=== PATIENT | female | born 1990 | race American Indian/Alaskan Native ===

== ENCOUNTER 2019-01-06 19:53 | Emergency (ER) | payer MEDICARE ==
--- NOTE | 2019-01-06 20:03 | Emergency Department Report ---
Blank Doc - Documentation Documentation: This is a 28-year-old female that presents with right facial rash. This initial assessment/diagnostic orders/clinical plan/treatment(s) is/are subject to change based on patient's health status, clinical progression and re- assessment by fellow clinical providers in the ED. Further treatment and workup at subsequent clinical providers discretion. Patient/guardians urged not to elope from the ED as their condition may be serious if not clinically assessed and managed. Initial orders include: 1- Patient sent to [facility] for further evaluation and treatment
[2019-01-06 20:09] VITALS: BP 145/88
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
== END 2019-01-06 23:02 | disposition home or self-care (01) ==
LOC: ED 19:53
DX: S00.81XA Abrasion of other part of head, initial encounter (principal); E11.9 Type 2 diabetes mellitus without complications; J45.909 Unspecified asthma, uncomplicated; F20.9 Schizophrenia, unspecified; E03.9 Hypothyroidism, unspecified; Z79.899 Other long term (current) drug therapy; Z91.013 Allergy to seafood; Y04.2XXA Assault by strike against or bumped into by another person, initial encounter; Y93.89 Activity, other specified; Y92.89 Other specified places as the place of occurrence of the external cause; Y99.8 Other external cause status
CPT/HCPCS: 99282

== ENCOUNTER 2019-04-07 20:01 | Emergency (ER) | payer MEDICARE ==
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
[2019-04-07 21:22] LABS: Basophils % (Auto) 0.4 % (0.0-1.8); Eosinophils # (Auto) 0.4 K/mm3 (0.0-0.4); Eosinophils % (Auto) 3.1 % (0.0-4.3); Hematocrit 33.8 % (30.3-42.9); Hemoglobin 10.8 gm/dl (10.1-14.3); Lymphocytes # (Auto) 2.1 K/mm3 (1.2-5.4); Lymphocytes % (Auto) 17.5 % (13.4-35.0); Mean Corpuscular HGB Conc 32 % (30-34); Mean Corpuscular Volume 72 fl (79-97); Monocytes # (Auto) 0.9 K/mm3 (0.0-0.8); Monocytes % (Auto) 7.2 % (0.0-7.3); Platelet Count 448 K/mm3 (140-440); Red Blood Count 4.71 M/mm3 (3.65-5.03)
[2019-04-07 21:31] LABS: Bacteria,Urine 1+ /HPF (Negative); Bilirubin,Urine NEG (Negative); Blood,Urine MOD (Negative); Color,Urine Yellow (Yellow); Mucus,Urine FEW /HPF; Urobilinogen,Urine < 2.0 mg/dL (<2.0)
[2019-04-07 21:38] LABS: Alanine Aminotransferase 13 units/L (7-56); Albumin 4.4 g/dL (3.9-5); BUN/Creatinine Ratio 20; Blood Urea Nitrogen 12 mg/dL (7-17); Calcium 9.5 mg/dL (8.4-10.2); Hemolysis Index 29
[2019-04-07 21:41] LABS: Amphetamine Screen,Urine PRESUMPTIVE NEGATIVE; Benzodiazepines Screen,Urine PRESUMPTIVE NEGATIVE; Cannabinoid Screen,Urine PRESUMPTIVE NEGATIVE; Cocaine Screen,Urine PRESUMPTIVE NEGATIVE; Methadone Screen,Urine PRESUMPTIVE NEGATIVE; Opiate Screen,Urine PRESUMPTIVE NEGATIVE
[2019-04-07] MEDS ORDERED: BENADRYL PO PRN (22:09)
[2019-04-07] MEDS ORDERED: LEVAQUIN ONE (22:16)
[2019-04-07] MEDS ORDERED: BENADRYL PO ONE ×2 (22:17)
[2019-04-07] MEDS: LEVAQUIN PO SCH (22:39)
[2019-04-08] MEDS ORDERED: TOPAMAX PO SCH (10:00)
[2019-04-08] MEDS ORDERED: TOPIRAMATE 100 MG PO SCH (10:00)
[2019-04-08] MEDS ORDERED: MELATONIN PO PRN (13:05)
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
[2019-04-08] MEDS: LEXAPRO PO SCH (15:34)
[2019-04-08] MEDS: SYNTHROID PO SCH (19:35)
[2019-04-08] MEDS ORDERED: NON-FORMULARY (Trazodone Hcl [Oleptro Er] 150 MG) PO SCH (22:00)
[2019-04-08] MEDS ORDERED: DESYREL PO SCH (22:00)
[2019-04-08] MEDS: TRILEPTAL PO SCH (22:58)
[2019-04-08] MEDS: LEVAQUIN PO SCH (22:58)
[2019-04-09] MEDS: SYNTHROID PO SCH (08:26)
[2019-04-09] MEDS: LEXAPRO PO SCH (11:00)
[2019-04-09] MEDS: TRILEPTAL PO SCH (11:00)
--- NOTE | 2019-04-09 12:08 | Progress Note ---
Subjective - Reason for Consult Consult date: 04/09/19 Reason for consult: Psychiatry Follow-up - Chief Complaint Chief complaint: 'I'm doing better" 29 y.o. AA female who presented to the ER for SI's. Today the patient was calm and cooperative during the assessment. She stated that she would like to go back to her longterm. Per the staff, no behavioral disturbances overnight. She denies Si/HI's and AVH's. She denies any side effects of her medications. several attempts was made to contact the patient's tailing machine operator Ms Mallika Mckinley at [phone]. Mental Status Exam - Vital signs Last Vital Signs Temp 98.1 F 04/09/19 07:00 Pulse 97 H 04/09/19 07:00 Resp 18 04/09/19 07:00 BP 109/66 04/09/19 07:00 Pulse Ox 98 04/09/19 07:00 - Exam Narrative exam: SE: Appearance: calm, cooperative Behavior: regular eye contact Speech: regular rate and tone Mood: "okay" Affect: congruent to mooed Thought Process: circumstantial Thought Content: denies SI/HI's and AVH's Motor Activity: sitting up in bed Cognition: A/O x3 Insight: variable to fair Judgment: fair Assessment and Plan Impression: Hx of Mood DO. Unspecified Intellectual Disability. The patient's actions prior to her ER visit was behavioral. Today the patient was calm and cooperative during the assessment. The patient is no threat to self. Recommendation/Plan: Rescind 1013. Continue Lexapro 10 mg PO daily for depression and Trileptal 300 mg PO BID for mood.. Discussed possible suicidality/medication induced maegan with the patient reference Lexapro, she verbalized understanding. Dipso: The patient can follow up with [facility] for outpatient psy services. . Staffed with Dr Kesha Barkley.
[2019-04-09 19:52] VITALS: BP 128/89
== END 2019-04-09 20:39 | disposition home or self-care (01) ==
LOC: ED 20:01 → EEVIPCON 20:01 → ED 04-09 20:39
DX: F20.9 Schizophrenia, unspecified (principal); E11.9 Type 2 diabetes mellitus without complications; J45.909 Unspecified asthma, uncomplicated; E05.90 Thyrotoxicosis, unspecified without thyrotoxic crisis or storm; F17.210 Nicotine dependence, cigarettes, uncomplicated; F12.90 Cannabis use, unspecified, uncomplicated; F10.10 Alcohol abuse, uncomplicated; Z98.890 Other specified postprocedural states; Z79.899 Other long term (current) drug therapy; Z91.013 Allergy to seafood
CPT/HCPCS: 36415; 80053; 80164; 80307; 80320; 81001; 84703; 85025; 99284; 99285; G0480

== ENCOUNTER 2019-08-03 16:14 | Emergency (ER) | payer MEDICARE ==
--- NOTE | 2019-08-03 16:49 | Event Note ---
ED Screening Note Date of service: 08/03/19 Time: 16:45 ED Screening Note: 29 y/o female comes in for being angry denies any SI/ does not know if she wants to hurting anyone else. LMP 07/07/19 This initial assessment/diagnostic orders/clinical plan/treatment(s) is/are subject to change based on patients health status, clinical progression and re- assessment by fellow clinical providers in the ED. Further treatment and workup at subsequent clinical providers discretion. Patient/guardian urged not to elope from the ED as their condition may be serious if not clinically assessed and managed. Initial orders include:
[2019-08-03 17:12] LABS: Basophils % (Auto) 0.3 % (0.0-1.8); Eosinophils # (Auto) 0.5 K/mm3 (0.0-0.4); Eosinophils % (Auto) 4.6 % (0.0-4.3); Hematocrit 30.5 % (30.3-42.9); Hemoglobin 10.4 gm/dl (10.1-14.3); Lymphocytes # (Auto) 2.5 K/mm3 (1.2-5.4); Mean Corpuscular HGB Conc 34 % (30-34); Monocytes # (Auto) 0.7 K/mm3 (0.0-0.8); Monocytes % (Auto) 6.4 % (0.0-7.3); Platelet Count 444 K/mm3 (140-440); Red Blood Count 4.43 M/mm3 (3.65-5.03); Red Cell Distribution Width 18.4 % (13.2-15.2)
[2019-08-03 17:14] LABS: Mean Corpuscular Volume 69 fl (79-97)
[2019-08-03 17:33] LABS: BUN/Creatinine Ratio 13; Blood Urea Nitrogen 10 mg/dL (7-17); Calcium 9.6 mg/dL (8.4-10.2); Hemolysis Index 5
[2019-08-03] MEDS ORDERED: metroNIDAZOLE 500 MG TAB PO ONE (19:11)
--- NOTE | 2019-08-03 19:11 | Emergency Department Report ---
HPI - General Chief Complaint: Psych Time Seen by Provider: 08/03/19 16:44 - HPI HPI: 29-year-old -[place] female presents to the emergency department by EMS after she ran away from her residential earlier today. Patient says that she has been out of her psychiatric medications the past 2 days and "when I am off of my meds I act out." She says that [place]. She denies any suicidal or homicidal ideations. She denies any current auditory or visual hallucinations but says she had some of them 2 or 3 days ago. She has a past medical history that includes asthma, diabetes, hyperthyroidism, schizophrenia. The patient also says that she needs to be treated for trichomoniasis. She says she was found to have it and tested by another physician a week ago and that she took the medications without any relief. ED Past Medical Hx - Past Medical History Previous Medical History?: Yes Hx Diabetes: Yes Hx Psychiatric Treatment: Yes Hx Asthma: Yes Additional medical history: Schizophrenia, hyperthyroidism - Surgical History Past Surgical History?: Yes Additional Surgical History: facial - Social History Smoking Status: Current Every Day Smoker Substance Use Type: Alcohol - Medications Home Medications: Home Medications Medication Instructions Recorded Confirmed Last Taken Type Benztropine [Cogentin] 2 mg PO BID 06/10/13 04/07/19 07/13/13 08:[address] [Depakote] 500 mg PO BID 06/10/13 04/07/19 Unknown History Docusate Sodium [Colace] 100 mg PO BID PRN 06/10/13 04/07/19 07/13/13 08:00 History Levothyroxine [Synthroid] 75 mcg PO QAM 06/10/13 04/07/19 07/13/13 08:00 History Prazosin [Minipress] 1 mg PO QHS 06/10/13 04/07/19 07/12/13 21:00 History Topiramate [Topamax] 100 mg PO BID 06/10/13 04/07/19 07/13/13 08:00 History Trazodone HCl [Oleptro ER] 150 mg PO QHS 06/10/13 04/07/19 Unknown History clonazePAM [Klonopin] 2 mg PO BID 06/10/13 04/07/19 Unknown History diphenhydrAMINE [Benadryl] 50 mg PO QHS PRN 06/10/13 04/07/19 Unknown History fluPHENAZine (NF) [Prolixin] 1 mg PO QDAY 06/10/13 04/07/19 07/13/13 08:00 Hi story lamoTRIgine [Lamotrigine] 100 mg PO QDAY 06/10/13 04/07/19 07/13/13 08:00 History Neomycin/Bacitracin/Polymyxinb 14.17 gm TP BID 7 Days #1 oint...g. 01/06/19 04/07/19 Unknown Rx [Triple Antibiotic Ointment] Nitrofurantoin [place]/M-Cryst 100 mg PO Q12HR #14 capsule 08/04/19 Unknown Rx [Macrobid CAP] ED Review of Systems ROS: Stated complaint: MH EVAL Other details as noted in HPI Comment: All other systems reviewed and negative Constitutional: denies: chills, fever Eyes: denies: eye pain, vision change ENT: denies: ear pain, throat pain Respiratory: denies: cough, shortness of breath Cardiovascular: denies: chest pain, palpitations Gastrointestinal: denies: abdominal pain, vomiting Genitourinary: denies: dysuria, hematuria Musculoskeletal: denies: back pain, arthralgia Neurological: denies: headache, weakness Psychiatric: denies: homicidal thoughts, suicidal thoughts Physical Exam - Physical Exam Vital Signs: Vital Signs 08/03/19 16:23 Temperature 97.4 F L Pulse Rate 122 H Respiratory 19 Rate Blood Pressure 142/68 O2 Sat by Pulse 98 Oximetry Physical Exam: GENERAL: The patient is well-developed well-nourished. HENT: Normocephalic. Atraumatic. Patient has moist mucous membranes. EYES: Extraocular motions are intact. NECK: Supple. Trachea is midline. CHEST/LUNGS: Clear to auscultation. There is no respiratory distress noted. HEART/CARDIOVASCULAR: Regular. There is mild tachycardia. There is no murmur. ABDOMEN: Abdomen is soft, nontender. Patient has normal bowel sounds. There is no abdominal distention. SKIN: Skin is warm and dry. NEURO: The patient is awake, alert, and oriented. The patient is cooperative. The patient has no focal neurologic deficits. Normal speech. MUSCULOSKELETAL: There is no tenderness or deformity. There is no evidence of acute injury. ED Course Vital Signs 08/03/19 16:23 Temperature 97.4 F L Pulse Rate 122 H Respiratory 19 Rate Blood Pressure 142/68 O2 Sat by Pulse 98 Oximetry ED Medical Decision Making - Lab Data Result diagrams: 08/03/19 16:53 08/03/19 16:53 - EKG Data -: EKG Interpreted by Me EKG shows normal: sinus rhythm, axis, intervals, QRS complexes, ST-T waves Rate: normal - EKG Data When compared to previous EKG there are: previous EKG unavailable Interpretation: normal EKG - Medical Decision Making This patient was since to the emergency department for a mental health evaluation after she was running away from the residential. She admits to doing so as she has been out of her medications and it has caused her to be agitated and act out. She denies any current auditory or visual hallucinations. She de nies any suicidal or homicidal ideations. She is otherwise calm and appropriate. She does not appear to meet criteria to be made a 1013 and require inpatient involuntary psychiatric admission. She was seen by the psychiatric security control assessor, Nahum, who agrees with this assessment. Patient's labs were mostly unremarkable except for a elevated TSH and a slightly low free T4 showing some hypothyroidism. Patient has most likely not taking her Synthroid. Patient also has a urinary tract infection. She was given a dose of Macrobid and will be given a prescription for the same for home. The patient has been given outpatient referrals for the [facility] facility, as well as others, and has been encouraged to follow up the next few days. She will return to the emergency Department with any worsening of her symptoms or any acute distress. - Differential Diagnosis schizophrenia, bipolar disorder, substance abuse, UTI Critical Care Time: No Critical care attestation.: If time is entered above; I have spent that time in minutes in the direct care of this critically ill patient, excluding procedure time. ED Disposition Clinical Impression: History of schizophrenia, Noncompliance with medication regimen UTI (urinary tract infection) Qualifiers: Urinary tract infection type: acute cystitis Hematuria presence: without hematuria Qualified Code(s): N30.00 - Acute cystitis without hematuria Hypothyroid Qualifiers: Hypothyroidism type: unspecified Qualified Code(s): E03.9 - Hypothyroidism, unspecified Disposition: TO HOME OR SELFCARE Is pt being admited?: No Condition: Stable Instructions: Urinary Tract Infection in Women (ED), Schizophrenia (ED), Hypothyroidism (ED) Additional Instructions: Please follow-up with a primary care physician in the next few days. Please follow-up with the [facility] or any of the outpatient psychiatric referrals that you have been given. Return to the emergency Department with any worsening of your symptoms, thoughts of harming yourself or others, or with any acute distress. Prescriptions: Nitrofurantoin Cobb/M-Cryst [Macrobid CAP] 100 mg PO Q12HR #14 capsule Referrals: PRIMARY CAREMD [Primary Care Provider] - 2-3 Days [facility] [Outside] - 2-3 Days [facility] [Outside] - 2-3 Days ANA MARIA SEGOVIA MD [Staff Physician] - 2-3 Days Time of Disposition: 01:47
[2019-08-03 20:45] LABS: Amphetamine Screen,Urine PRESUMPTIVE NEGATIVE; Benzodiazepines Screen,Urine PRESUMPTIVE NEGATIVE; Cannabinoid Screen,Urine PRESUMPTIVE NEGATIVE; Cocaine Screen,Urine PRESUMPTIVE NEGATIVE; Methadone Screen,Urine PRESUMPTIVE NEGATIVE; Opiate Screen,Urine PRESUMPTIVE NEGATIVE
[2019-08-03 20:46] LABS: Bilirubin,Urine NEG (Negative); Blood,Urine SM (Negative); Color,Urine Yellow (Yellow); Protein,Urine <15 mg/dL mg/dL (Negative); Urobilinogen,Urine < 2.0 mg/dL (<2.0)
[2019-08-03 20:47] LABS: WBC,Urine > 182.0 /HPF (0.0-6.0)
[2019-08-03] MEDS ORDERED: NITROFURANTOIN MONOHYD/M-CRYST 100 MG CAP PO ONE (20:49)
[2019-08-04 01:42] VITALS: BP 104/76
== END 2019-08-04 02:23 | disposition home or self-care (01) ==
LOC: ED 16:14 → EEVIPCON 16:14 → ED 08-04 02:23
DX: F20.9 Schizophrenia, unspecified (principal); N39.0 Urinary tract infection, site not specified; E03.9 Hypothyroidism, unspecified; F17.200 Nicotine dependence, unspecified, uncomplicated; J45.909 Unspecified asthma, uncomplicated; E11.9 Type 2 diabetes mellitus without complications; Z91.14 Patient's other noncompliance with medication regimen; Z91.013 Allergy to seafood
CPT/HCPCS: 36415; 80048; 80164; 80307; 80320; 81001; 84439; 84443; 84703; 85025; 93005; 93010; G0480

== ENCOUNTER 2019-11-08 18:16 | Emergency (ER) | payer MEDICARE ==
[2019-11-08] MEDS ORDERED: IPRATROPIUM 0.02% NEBU 2.5 ML IH ONE (19:36)
[2019-11-08] MEDS ORDERED: ALBUTEROL 2.5 MG/3 ML NEBU IH ONE (19:36)
[2019-11-08] MEDS ORDERED: dexAMETHasone 20 MG/5 ML VIAL IM ONE (19:36)
--- NOTE | 2019-11-08 19:36 | Event Note ---
ED Screening Note ED Screening Note: cough that began a week ago +mucus production states she fell out of the bed a few days ago and has right rib pain PMHx asthma, DM, HTN, hypothyroid no allergies to meds no abd pain on depo provera LNMP: August 23 +smoker This initial assessment/diagnostic orders/clinical plan/treatment(s) is/are subject to change based on patients health status, clinical progression and re- assessment by fellow clinical providers in the ED. Further treatment and workup at subsequent clinical providers discretion. Patient/guardian urged not to elope from the ED as their condition may be serious if not clinically assessed and managed. Initial orders include: UA, urine preg, CXR neb tx and steroids
[2019-11-08 20:27] LABS: Bilirubin,Urine NEG (Negative); Blood,Urine NEG (Negative); Color,Urine Yellow (Yellow); Mucus,Urine FEW /HPF; Protein,Urine <15 mg/dL mg/dL (Negative); Urobilinogen,Urine < 2.0 mg/dL (<2.0)
[2019-11-08 20:40] LABS: HCG Qualitative,Urine Negative (Negative)
--- NOTE | 2019-11-08 21:49 | XRay Report ---
CHEST 2 VIEWS INDICATION / CLINICAL INFORMATION: cough, wheezing, asthma. COMPARISON: None available. FINDINGS: SUPPORT DEVICES: None. HEART / MEDIASTINUM: No significant abnormality. LUNGS / PLEURA: No significant pulmonary or pleural abnormality. No pneumothorax. ADDITIONAL FINDINGS: No significant additional findings. IMPRESSION: 1. No acute findings. Signer Name: Manuel Lin MD Signed: 11/08/2019 9:44 PM Workstation Name: [id number]
--- NOTE | 2019-11-08 21:51 | XRay Report ---
Right RIBS, 2 views INDICATION: Pain following injury several days ago FINDINGS: The ribs are intact with no fractures seen. Signer Name: Manuel Lin MD Signed: 11/08/2019 9:47 PM Workstation Name: [id number]
[2019-11-08] MEDS ORDERED: dexAMETHasone 20 MG/5 ML VIAL ONE (23:14)
--- NOTE | 2019-11-09 01:29 | Emergency Department Report ---
ED General Adult HPI - General Chief complaint: Fall Stated complaint: COUGH, RIGHT SIDE PAIN Time Seen by Provider: 11/08/19 19:33 Source: patient Mode of arrival: Ambulatory Limitations: No Limitations - History of Present Illness Initial comments: 29 y.o. female with history of schizophrenia, asthma, diabetes and hypertension presents after stating that she fell out of her bed 4 days ago. Patient complains of pain on her right side. Patient states she has had no vomiting. Patient is to take the medication for the pain. Patient denies any seizure. Patient denies any LOC. Patient complains of shortness of breath with this as well. Severity scale (0 -10): 10 - Related Data Home Medications Medication Instructions Recorded Confirmed Last Taken Benztropine [Cogentin] 2 mg PO BID 06/10/13 04/07/19 07/13/13 08:[address] [Depakote] 500 mg PO BID 06/10/13 04/07/19 Unknown Docusate Sodium [Colace] 100 mg PO BID PRN 06/10/13 04/07/19 07/13/13 08:00 Levothyroxine [Synthroid] 75 mcg PO QAM 06/10/13 04/07/19 07/13/13 08:00 Prazosin [Minipress] 1 mg PO QHS 06/10/13 04/07/19 07/12/13 21:00 Topiramate [Topamax] 100 mg PO BID 06/10/13 04/07/19 07/13/13 08:00 Trazodone HCl [Oleptro ER] 150 mg PO QHS 06/10/13 04/07/19 Unknown clonazePAM [Klonopin] 2 mg PO BID 06/10/13 04/07/19 Unknown diphenhydrAMINE [Benadryl] 50 mg PO QHS PRN 06/10/13 04/07/19 Unknown fluPHENAZine (NF) [Prolixin] 1 mg PO QDAY 06/10/13 04/07/19 07/13/13 08:00 lamoTRIgine [Lamotrigine] 100 mg PO QDAY 06/10/13 04/07/19 07/13/13 08:00 Previous Rx's Medication Instructions Recorded Last Taken Type Neomycin/Bacitracin/Polymyxinb 14.17 gm TP BID 7 Days #1 oint...g. 01/06/19 Unknown Rx [Triple Antibiotic Ointment] Nitrofurantoin [place]/M-Cryst 100 mg PO Q12HR #14 capsule 08/04/19 Unknown Rx [Macrobid CAP] traMADoL [Ultram] 50 mg PO Q6HR PRN #10 tablet 11/09/19 Unknown Rx Allergies Allergy/AdvReac Type Severity Reaction Status Date / Time shellfish derived Allergy Intermediate Rash Verified 07/13/13 17:46 ED Review of Systems ROS: Stated complaint: COUGH, RIGHT SIDE PAIN Other details as noted in HPI Constitutional: denies: chills, fever Eyes: denies: eye pain, eye discharge, vision change ENT: denies: ear pain, throat pain Respiratory: denies: cough, shortness of breath, wheezing Cardiovascular: denies: chest pain, palpitations Endocrine: no symptoms reported Gastrointestinal: denies: abdominal pain, nausea, diarrhea Genitourinary: denies: urgency, dysuria, discharge Musculoskeletal: joint swelling Skin: denies: rash, lesions Neurological: denies: headache, weakness, paresthesias Psychiatric: denies: anxiety, depression Hematological/Lymphatic: denies: easy bleeding, easy bruising ED Past Medical Hx - Past Medical History Previous Medical History?: Yes Hx Diabetes: Yes Hx Psychiatric Treatment: Yes Hx Asthma: Yes Additional medical history: Schizophrenia, hyperthyroidism - Surgical History Past Surgical History?: Yes Additional Surgical History: facial - Social History Smoking Status: Current Every Day Smoker Substance Use Type: None - Medications Home Medications: Home Medications Medication Instructions Recorded Confirmed Last Taken Type Benztropine [Cogentin] 2 mg PO BID 06/10/13 04/07/19 07/13/13 08:[address] [Depakote] 500 mg PO BID 06/10/13 04/07/19 Unknown History Docusate Sodium [Colace] 100 mg PO BID PRN 06/10/13 04/07/19 07/13/13 08:00 History Levothyroxine [Synthroid] 75 mcg PO QAM 06/10/13 04/07/19 07/13/13 08:00 History Prazosin [Minipress] 1 mg PO QHS 06/10/13 04/07/19 07/12/13 21:00 History Topiramate [Topamax] 100 mg PO BID 06/10/13 04/07/19 07/13/13 08:00 History Trazodone HCl [Oleptro ER] 150 mg PO QHS 06/10/13 04/07/19 Unknown History clonazePAM [Klonopin] 2 mg PO BID 06/10/13 04/07/19 Unknown History diphenhydrAMINE [Benadryl] 50 mg PO QHS PRN 06/10/13 04/07/19 Unknown History fluPHENAZine (NF) [Prolixin] 1 mg PO QDAY 06/10/13 04/07/19 07/13/13 08:00 History lamoTRIgine [Lamotrigine] 100 mg PO QDAY 06/10/13 04/07/19 07/13/13 08:00 History Neomycin/Bacitracin/Polymyxinb 14.17 gm TP BID 7 Days #1 oint...g. 01/06/19 04/07/19 Unknown Rx [Triple Antibiotic Ointment] Nitrofurantoin [place]/M-Cryst 100 mg PO Q12HR #14 capsule 08/04/19 Unknown Rx [Macrobid CAP] traMADoL [Ultram] 50 mg PO Q6HR PRN #10 tablet 11/09/19 Unknown Rx ED Physical Exam - General Limitations: No Limitations General appearance: alert, in no apparent distress - Head Head exam: Present: atraumatic, normocephalic - Eye Eye exam: Present: normal appearance - ENT ENT exam: Present: mucous membranes moist - Neck Neck exam: Present: normal inspection - Respiratory Respiratory exam: Present: normal lung sounds bilaterally. Absent: respiratory distress - Cardiovascular Cardiovascular Exam: Present: normal rhythm, tachycardia, other (Reproducible tenderness present in the right mid axillary line at the level of T10 with no evidence of erythema or ecchymosis). Absent: systolic murmur, diastolic murmur, rubs, gallop - GI/Abdominal GI/Abdominal exam: Present: soft, normal bowel sounds - Extremities Exam Extremities exam: Present: normal inspection - Back Exam Back exam: Present: normal inspection - Neurological Exam Neurological exam: Present: alert, oriented X3 - Psychiatric Psychiatric exam: Present: normal affect, normal mood - Skin Skin exam: Present: warm, dry, intact, normal color. Absent: rash ED Course Vital Signs 11/08/19 11/08/19 19:32 23:17 Temperature 98.0 F Pulse Rate 120 H 110 H Respiratory 18 18 Rate Blood Pressure 138/51 Blood Pressure 102/67 [Left] O2 Sat by Pulse 96 100 Oximetry ED Medical Decision Making - Medical Decision Making Patient chest x-ray shows no acute process and rib film shows no acute fracture. Patient heart rate is down trended to 102. Patient will use her albuterol MDI while here in the emergency department. - Differential Diagnosis Fracture; Dislocation; COntusion; pneumothorax Critical care attestation.: If time is entered above; I have spent that time in minutes in the direct care of this critically ill patient, excluding procedure time. ED Disposition Clinical Impression: Rib contusion Disposition: - TO HOME OR SELFCARE Is pt being admited?: No Does the pt Need Aspirin: No Condition: Stable Instructions: Contusion in Adults (ED) Prescriptions: traMADoL [Ultram] 50 mg PO Q6HR PRN #10 tablet PRN Reason: Pain Referrals: PRIMARY CARE, [Primary Care Provider] - 3-5 Days Time of Disposition: 01:32 Print Language: ANGOLAN
[2019-11-09 03:11] VITALS: BP 125/59
== END 2019-11-09 03:00 | disposition home or self-care (01) ==
LOC: ED 18:16
DX: S20.211A Contusion of right front wall of thorax, initial encounter (principal); E11.9 Type 2 diabetes mellitus without complications; J45.909 Unspecified asthma, uncomplicated; F20.89 Other schizophrenia; E78.00 Pure hypercholesterolemia, unspecified; F17.200 Nicotine dependence, unspecified, uncomplicated; E05.00 Thyrotoxicosis with diffuse goiter without thyrotoxic crisis or storm; Z79.899 Other long term (current) drug therapy; Z91.013 Allergy to seafood; X58.XXXA Exposure to other specified factors, initial encounter; Y93.89 Activity, other specified; Y92.89 Other specified places as the place of occurrence of the external cause; Y99.8 Other external cause status
CPT/HCPCS: 71046; 71100; 81001; 81025; 96372; 99283; J1100